=== PATIENT | female | born 1975 | race African-American/Black ===

== ENCOUNTER 2017-09-03 14:23 | Emergency (ER) | payer SELFPAY ==
[2017-09-03 14:27] VITALS: BMI 30.2
[2017-09-03] MEDS ORDERED: NS 1000 ML 1,000 ML ONE ×2 (14:30→16:31)
[2017-09-03] MEDS ORDERED: ZOFRAN INJ 4 MG VIAL ONE (14:30)
[2017-09-03] MEDS ORDERED: ZOFRAN INJ 4 MG VIAL IVP ONE (14:38)
[2017-09-03] MEDS ORDERED: NS 1000 ML 1,000 ML IV ONE ×2 (14:38→16:29)
--- NOTE | 2017-09-03 14:46 | DR.GENAD ---
HPI - PCP Primary Care Physician: ABRAHAM - Complaint/Symptoms Chief Complaint Doctors Comments: Patient awakened this morning not feeling weel , had nausea and vomiting with low grade fever. Chief Complaint:: PT C/O N/V HEADACHE FEVER CHILLS BODY ACHES. PT STATES ALL OF HER SYMPTOMS STARTED THIS AM. - Source History Provided: Patient - Mode of Arrival Mode of Arrival: Ambulatory - Timing Onset of Chief Complaint: 09/03/17 PMH - PMH Past Medical History: Yes Past Medical History: Diabetes Past Surgical History: Yes Surgical History: Cholecystectomy, Hysterectomy - Family History History of Family Medical Conditions: Yes Family Medical History: Diabetes Mellitus - Social History Does any household member use tobacco: No Alcohol Use: None Do you use any recreational Drugs:: No Lives With: Family Lives Where: Home - infectious screening In the last 2 months have you had wt loss of >10#?: NO Have you had fever, night sweats or hemotysis?: No Have you traveled outside the country in the last 6 months?: No Isolation: Standard ROS - Review of Systems Constitutional: Diaphoresis ENTM: No Symptoms Reported Respiratoy: No Symptoms Reported Cardiovascular: No Symptoms Reported Gastrointestinal/Abdominal: No Symptoms Reported Genitourinary: No Symptoms Reported Neurological: No Symptoms Reported Musculoskeletal: No Symptoms Reported Integumentary: No Symptoms Reported Hematologic/Lymphatic: No Symptoms Reported Endocrine: No Symptoms Reported Psychiatric: No Symptoms Reported All Other Systems: Reviewed and Negative PE - Vital Signs Vitals: Temperature 99.3 F Pulse Rate [Left Brachial] 118 Pulse Rate 133 Respiratory Rate 16 Blood Pressure [Right Arm] 116/73 Blood Pressure [Left Arm] 118/76 Blood Pressure 111/76 O2 Sat by Pulse Oximetry 100 - General General Appearance: Alert, In No Apparent Distress - Head Head Exam: Normal Inspection, Atraumatic - Eyes Eye exam: Normal Appearance, PERRL, EOMI - ENT ENT Exam: Normal Exam External Ear Exam: Normal External Inspection TM/Canal Exam: Bilateral Normal Nose Exam: Normal Nose Exam, Sinus Tenderness Mouth Exam: Normal Inspection Throat Exam: Normal Inspection - Neck Neck Exam: Normal Inspection, Full ROM - Chest Chest Inspection: Normal Inspection, Symmetric Chest Wall Rise - Respiratory Respiratory Exam: Normal Lung Sounds Bilat Respiratory Exam: Bilateral Clear to Auscultation - Cardiovascular Cardiovascular Exam: Regular Rate, Normal Rhythm - Abdominal Exam Abdominal Exam: Normal Inspection, Normal Bowel Sounds Abdominal Tenderness: negative: RUQ, RLQ, LUQ, LLQ, Epigastrium, Suprapubic, Diffuse, Mild, Moderate, Severe, Other - Back Back Exam: Normal Inspection, Full ROM - Neurologic Neurological Exam: Alert, Oriented X3, CN II-XII Intact - Psychiatric Psychiatric Exam: Normal Affect, Normal Mood - Skin Skin Exam: Warm, Dry Course - Reevaluation 1st: Improved ROR - Labs Reviewed Laboratory Results Reviewed?: Yes (urine: leuk +,glucose 275) Result Diagrams: 09/03/17 14:30 09/03/17 14:30 Laboratory: WBC 5.9 X10^3/uL (3.6-10.0) 09/03/17 14:30 RBC 4.97 X10^6/uL (3.5-5.4) 09/03/17 14:30 Hgb 14.3 g/dL (12.0-16.0) 09/03/17 14:30 Hct 41.4 % (36.0-47.0) 09/03/17 14:30 MCV 83.4 fL (80.0-100.0) 09/03/17 14:30 MCH 28.8 pg (27.0-34.0) 09/03/17 14:30 MCHC 34.6 g/dL (33.0-35.0) 09/03/17 14:30 RDW 12.7 % (11.6-16.5) 09/03/17 14:30 Plt Count 312 X10^3/uL (150.0-450.0) 09/03/17 14:30 MPV 7.7 fL (7.4-11.0) 09/03/17 14:30 Neut % 50.8 % (42.0-75.0) 09/03/17 14:30 Lymph % 38.4 % (21.0-51.0) 09/03/17 14:30 [place] % 9.6 % (0.0-13.0) 09/03/17 14:30 Eos % 0.4 % (0.9-2.9) L 09/03/17 14:30 Baso % 0.8 % (0.2-1.0) 09/03/17 14:30 Neut # 3.0 x10^3/uL (2.2-4.8) 09/03/17 14:30 Lymph # 2.3 X10^3/uL (1.3-2.9) 09/03/17 14:30 [place] # 0.6 x10^3/uL (0.3-0.8) 09/03/17 14:30 Eos # 0.0 x10^3/uL (0.0-0.2) 09/03/17 14:30 Baso # 0.0 X10^3/uL (0.0-0.1) 09/03/17 14:30 Absolute Nucleated RBC 0.1 /100WBC 09/03/17 14:30 Sodium 135 mmol/L (136-145) L 09/03/17 14:30 Corrected Sodium 140 mmol/L (136-145) 09/03/17 14:30 Potassium 3.5 mmol/L (3.5-5.1) 09/03/17 14:30 Chloride 100 mmol/L (98-107) 09/03/17 14:30 Carbon Dioxide 28.8 mmol/L (21-32) 09/03/17 14:30 BUN 11 mg/dL (7-18) 09/03/17 14:30 Creatinine 0.89 mg/dL (0.55-1.02) 09/03/17 14:30 Est GFR (MDRD) Af Amer > 60 (>60) 09/03/17 14:30 Est GFR (MDRD) Non-Af > 60 (>60) 09/03/17 14:30 Glucose 314 mg/dL (65-99) H 09/03/17 14:30 POC Glucose (mg/dL) 275 mg/dL (65-99) H 09/03/17 18:49 Calcium 9.5 mg/dL (8.5-10.1) 09/03/17 14:30 Specimen Type Clean catch urine 09/03/17 16:09 Urine Color Pale yellow (YELLOW) 09/03/17 16:09 Urine Appearance Cloudy (CLEAR) 09/03/17 16:09 Urine pH 7.0 (5.0 - 8.0) 09/03/17 16:09 Ur Specific [place] 1.005 (1.000-1.030) 09/03/17 16:09 Urine Protein 1+ (NEGATIVE) 09/03/17 16:09 Urine Glucose (UA) 4+ (NEGATIVE) 09/03/17 16:09 Urine Ketones 2+ (NEGATIVE) 09/03/17 16:09 Urine Occult Blood 1+ (NEGATIVE) 09/03/17 16:09 Urine Nitrite Negative (NEGATIVE) 09/03/17 16:09 Urine Bilirubin Negative (NEGATIVE) 09/03/17 16:09 Urine Urobilinogen Normal (NORMAL) 09/03/17 16:09 Ur Leukocyte Esterase 1+ (NEGATIVE) 09/03/17 16:09 Urine RBC 2-4 /HPF (NEGATIVE) 09/03/17 16:09 Urine WBC 3-5 /HPF (NEGATIVE) 09/03/17 16:09 Ur Squamous Epith Cells Few /HPF (NEGATIVE) 09/03/17 16:09 Ur Renal Epithelial Cell Few /HPF (NEGATIVE) 09/03/17 16:09 Urine Bacteria 3+ /HPF (NEGATIVE) 09/03/17 16:09 Ur Culture Indicated? Yes/culture set up 09/03/17 16:09 Streptococcus Screen Negative (NEGATIVE) 09/03/17 14:54 - Diagnosis Discharge Problem: Dehydration, Gastroenteritis UTI (urinary tract infection) Qualifiers: Urinary tract infection type: acute cystitis Hematuria presence: with hematuria Qualified Code(s): N30.01 - Acute cystitis with hematuria - Discharge Plan Condition: Stable - Follow ups/Referrals Follow ups/Referrals: John ROSARIO [Primary Care Provider] - 3 days - Instructions
[2017-09-03] MEDS ORDERED: TORADOL 30 MG VIAL ONE (14:51)
[2017-09-03] MEDS ORDERED: TORADOL 30 MG VIAL IVP ONE (14:57)
[2017-09-03 14:59] LABS: BASOPHILS % (AUTO) 0.8 % (0.2-1.0); EOSINOPHILS % (AUTO) 0.4 % (0.9-2.9); HEMATOCRIT 41.4 % (36.0-47.0); HEMOGLOBIN 14.3 g/dL (12.0-16.0); LYMPHOCYTES # (AUTO) 2.3 X10^3/uL (1.3-2.9); LYMPHOCYTES % (AUTO) 38.4 % (21.0-51.0); MEAN CORPUSCULAR HEMOGLOBIN 28.8 pg (27.0-34.0); MEAN CORPUSCULAR HGB CONC 34.6 g/dL (33.0-35.0); MEAN CORPUSCULAR VOLUME 83.4 fL (80.0-100.0); MEAN PLATELET VOLUME 7.7 fL (7.4-11.0); MONOCYTES # (AUTO) 0.6 x10^3/uL (0.3-0.8); MONOCYTES % (AUTO) 9.6 % (0.0-13.0); NEUTROPHILS % (AUTO) 50.8 % (42.0-75.0); PLATELET COUNT 312 X10^3/uL (150.0-450.0); RED BLOOD COUNT 4.97 X10^6/uL (3.5-5.4); RED CELL DISTRIBUTION WIDTH 12.7 % (11.6-16.5); WHITE BLOOD COUNT 5.9 X10^3/uL (3.6-10.0)
[2017-09-03 15:01] LABS: BLOOD UREA NITROGEN 11 mg/dL (7-18); CALCIUM 9.5 mg/dL (8.5-10.1); CARBON DIOXIDE 28.8 mmol/L (21-32); CHLORIDE 100 mmol/L (98-107); COR NA(FOR HYPERGLY) 140 mmol/L (136-145); CREATININE 0.89 mg/dL (0.55-1.02); SODIUM 135 mmol/L (136-145); eGFR BLACK RACES > 60 (>60); eGFR NON BLACK RACES > 60 (>60)
[2017-09-03 16:32] LABS: BILIRUBIN,URINE NEGATIVE (NEGATIVE); BLOOD/HEMOGLOBIN,URINE 1+ (NEGATIVE); GLUCOSE, URINE 4+ (NEGATIVE); KETONES,URINE 2+ (NEGATIVE); LEUKOCYTE ESTERASE ,URINE 1+ (NEGATIVE); NITRITES,URINE NEGATIVE (NEGATIVE); PROTEIN,URINE 1+ (NEGATIVE); UROBILINOGEN,URINE NORMAL (NORMAL)
[2017-09-03 16:44] LABS: APPEARANCE,URINE CLOUDY (CLEAR); BACTERIA,URINE 3+ /HPF (NEGATIVE); COLOR,URINE PALE YELLOW (YELLOW); RENAL EPITHELIAL CELLS,URINE FEW /HPF (NEGATIVE); SQUAMOUS EPITHELIAL CELL,UR FEW /HPF (NEGATIVE)
[2017-09-03 19:07] VITALS: BP 108/72
--- NOTE | 2017-09-03 22:35 | RAD ---
HISTORY: 42-year-old female with chills and fever, headache and nausea and vomiting. Study: Frontal view of the chest. Comparison: Chest radiograph 10/02/2013 Findings: The trachea is midline. The cardiac silhouette is unremarkable. The lungs are clear without focal c onsolidation, effusion or pneumothorax. Soft tissues are unremarkable. Osseous structures are unrema rkable. IMPRESSION: 1. No acute cardiopulmonary disease. Reported By:
== END 2017-09-03 19:07 | disposition home or self-care (01) ==
LOC: ER 14:35
DX: E86.0 Dehydration (principal); N30.01 Acute cystitis with hematuria; K52.89 Other specified noninfective gastroenteritis and colitis; B96.29 Other Escherichia coli [E. coli] as the cause of diseases classified elsewhere
CPT/HCPCS: 36415; 71010; 80048; 81001; 85025; 87070; 87086; 87088; 87186; 87880; 96365; 96367; 96374; 96375; 99283; A4222; J1885; J2405

== ENCOUNTER 2017-09-05 23:27 | Emergency (ER) | payer SELFPAY ==
[2017-09-05 23:35] VITALS: BP 143/82; BMI 30.2
--- NOTE | 2017-09-06 00:48 | DR.GENAD ---
HPI - PCP Primary Care Physician: megan - Complaint/Symptoms Chief Complaint Doctors Comments: Patient is complaining of right CVA and lower back pain for the past week getting worst today with severe right lower back pain. states she was here three days ago and they told her she had a UTI and gave her Cipro but she is still having pain with fever and chills. States the pain is 8 of 10 and was right lower abdomen radiating to the front initially but now mainly lower back pain. She is having nocturia x3-4 times. She denies hematuria, tobacco or alcohol usage. States she is a diabetic and is taking Lantus 20 units twice daily and her glucose usually run around 120-150 range but when she was here a few days ago her glucose was 300. States they gave her IV fluids and medicines for nausea. She is a patient of Dr. Rosario. Chief Complaint:: back pain - Nurses notes reviewed Nurses Notes Review: Yes - Source History Provided: Patient - Mode of Arrival Mode of Arrival: Ambulatory - Timing Onset of Chief Complaint: 09/01/17 Came on: Gradually - Duration Duration: Constant How lon Duration: Days - Location Location: right lower back pain - Severity Severity: Moderate - Modifying Factors Worsens:: movement and lying flat Improves:: nothing PMH - PMH Past Medical History: Yes Past Medical History: Diabetes Past Surgical History: Yes Surgical History: Cholecystectomy, [employer] Surgery Past Surgical History Comment: partial hysterectomy - Family History History of Family Medical Conditions: Yes Family Medical History: Diabetes Mellitus - Social History Does patient currently use any type of tobacco product: No Have you used tobacco products in the last 12 months: No Type of Tobacco Use: None Does any household member use tobacco: No Alcohol Use: None Do you use any recreational Drugs:: No Lives With: Family Lives Where: Home - infectious screening In the last 2 months have you had wt loss of >10#?: NO Have you had fever, night sweats or hemotysis?: No Have you traveled outside the country in the last 6 months?: No Isolation: Standard ROS - Review of Systems Constitutional: No Symptoms Reported, Chills. negative: See HPI, Diaphoresis, Fever, Malaise, Weakness, Irritable, Fatigue, Loss of Appetite, Other Eyes: No Symptoms Reported. negative: See HPI, Eye Pain, Blurred Vision, Tearing, Discharge, Photophobia, Diplopia, Other ENTM: No Symptoms Reported Respiratoy: No Symptoms Reported. negative: See HPI, Productive Cough, Non- Productive Cough, Moist Cough, Dry Cough, Hacking Cough, Barking Cough, Brassy Cough, Orthopnea, Short of Breath, Stridor, Wheezing, Hemoptysis, Other Cardiovascular: No Symptoms Reported Gastrointestinal/Abdominal: No Symptoms Reported. negative: See HPI, Abdominal Pain, Constipation, Diarrhea, Nausea, Vomiting, Food Intolerance, Other Genitourinary: No Symptoms Reported, Frequency. negative: See HPI, Discharge, Dysuria, Hematuria, Pain, Bleeding, Other Neurological: No Symptoms Reported Musculoskeletal: No Symptoms Reported, Back Pain (right lower back pain) Integumentary: No Symptoms Reported. negative: See HPI, Change in Color, Change in Hair/Nails, Dryness, Lesions, Lumps, Rash, Itching, Wound, Bruises, Juandice, Other Hematologic/Lymphatic: No Symptoms Reported. negative: See HPI, Anemia, Blood Clots, Easy Bleeding, Easy Bruising, Swollen Glands, Lymphadenopathy, Other Endocrine: No Symptoms Reported Psychiatric: No Symptoms Reported. negative: See HPI, Anxiety, Depression, Hallucinations, Excessive crying, Suicidal, Other PE - Vital Signs Vitals: Temperature 98.5 F Pulse Rate 101 Respiratory Rate 18 Blood Pressure [Right Arm] 108/72 Blood Pressure [Left Arm] 118/76 Blood Pressure 143/82 O2 Sat by Pulse Oximetry 100 - General Limitations: No Limitations General Appearance: Alert, In Distress (mild) - Head Head Exam: Normal Inspection, Atraumatic, Normocephalic - Eyes Eye exam: Normal Appearance, PERRL, EOMI. negative: Scleral Icterus, Conjunctival Injection, Nystagmus, Miosis, Mydrasis, Periorbital Swelling, Periorbital Tenderness, Other - ENT ENT Exam: Normal Exam, Normal Oropharynx, Normal External Ear Exam, Mucous Membranes Moist, TM's Normal Bilaterally TM/Canal Exam: Bilateral Normal Nose Exam: Normal Nose Exam Mouth Exam: Normal Inspection Throat Exam: Normal Inspection - Neck Neck Exam: Normal Inspection, Full ROM, Trachea Midline - Chest Chest Inspection: Normal Inspection, Symmetric Chest Wall Rise - Respiratory Respiratory Exam: Normal Lung Sounds Bilat Respiratory Exam: Bilateral Clear to Auscultation - Cardiovascular Cardiovascular Exam: Regular Rate, Normal Rhythm, Normal Heart Sounds - Abdominal Exam Abdominal Exam: Normal Inspection, Normal Bowel Sounds, Soft Abdominal Tenderness: negative: RUQ, RLQ, LUQ, LLQ, Epigastrium, Suprapubic, Diffuse, Mild, Moderate, Severe, Other - Extremities Extremities Exam: Normal Inspection, Full ROM, Normal Capillary Refill. negative: Tenderness, Edema, Joint Swelling, Calf Tenderness, Other - Back Back Exam: Normal Inspection, Full ROM, Tenderness (right lower hypogastric tenderness; no swelling or erythema). negative: (R) CVA Tenderness, (L) CVA Tenderness, Muscle Spasm, Paraspinal Tenderness, Vertebral Tenderness, Rashes, ( R) Sciatic Notch Tenderness, (L) Sciatic Notch Tendern, (R) Straight Leg Raise, (L) Straight Leg Raise, Other - Neurologic Neurological Exam: Alert, Oriented X3, CN II-XII Intact, Normal Gait, Reflexes Normal - Psychiatric Psychiatric Exam: Normal Affect, Normal Mood - Skin Skin Exam: Warm, Dry, Intact, Normal Color ROR - Labs Reviewed Laboratory Results Reviewed?: Yes (all labs and x-ray results reviewed and discussed with patient) Result Diagrams: 09/06/17 01:15 09/06/17 01:15 Laboratory: WBC 4.2 X10^3/uL (3.6-10.0) 09/06/17 01:15 RBC 4.46 X10^6/uL (3.5-5.4) 09/06/17 01:15 Hgb 12.7 g/dL (12.0-16.0) 09/06/17 01:15 Hct 37.1 % (36.0-47.0) 09/06/17 01:15 MCV 83.2 fL (80.0-100.0) 09/06/17 01:15 MCH 28.5 pg (27.0-34.0) 09/06/17 01:15 MCHC 34.3 g/dL (33.0-35.0) 09/06/17 01:15 RDW 13.0 % (11.6-16.5) 09/06/17 01:15 Plt Count 282 X10^3/uL (150.0-450.0) 09/06/17 01:15 MPV 7.5 fL (7.4-11.0) 09/06/17 01:15 Neut % 39.2 % (42.0-75.0) L 09/06/17 01:15 Lymph % 45.6 % (21.0-51.0) 09/06/17 01:15 [place] % 13.3 % (0.0-13.0) H 09/06/17 01:15 Eos % 1.7 % (0.9-2.9) 09/06/17 01:15 Baso % 0.2 % (0.2-1.0) 09/06/17 01:15 Neut # 1.6 x10^3/uL (2.2-4.8) L 09/06/17 01:15 Lymph # 1.9 X10^3/uL (1.3-2.9) 09/06/17 01:15 [place] # 0.6 x10^3/uL (0.3-0.8) 09/06/17 01:15 Eos # 0.1 x10^3/uL (0.0-0.2) 09/06/17 01:15 Baso # 0.0 X10^3/uL (0.0-0.1) 09/06/17 01:15 Absolute Nucleated RBC 0.1 /100WBC 09/06/17 01:15 Sodium 136 mmol/L (136-145) 09/06/17 01:15 Corrected Sodium 140 mmol/L (136-145) 09/06/17 01:15 Potassium 3.8 mmol/L (3.5-5.1) 09/06/17 01:15 Chloride 102 mmol/L (98-107) 09/06/17 01:15 Carbon Dioxide 28.0 mmol/L (21-32) 09/06/17 01:15 BUN 10 mg/dL (7-18) 09/06/17 01:15 Creatinine 0.78 mg/dL (0.55-1.02) 09/06/17 01:15 Est GFR (MDRD) Af Amer > 60 (>60) 09/06/17 01:15 Est GFR (MDRD) Non-Af > 60 (>60) 09/06/17 01:15 Glucose 275 mg/dL (65-99) H 09/06/17 01:15 Calcium 9.0 mg/dL (8.5-10.1) 09/06/17 01:15 Corrected Calcium TNP 09/06/17 01:15 Total Bilirubin 0.50 mg/dL (0.2-1.0) 09/06/17 01:15 AST 17 Units/L (15-37) 09/06/17 01:15 ALT 29 Units/L (12-78) 09/06/17 01:15 Alkaline Phosphatase 57 Units/L (46-116) 09/06/17 01:15 Total Protein 7.4 g/dL (6.4-8.2) 09/06/17 01:15 Albumin 3.4 g/dL (3.4-5.0) 09/06/17 01:15 Globulin 4.0 g/dL (2.5-4.5) 09/06/17 01:15 Albumin/Globulin Ratio 0.9 Ratio (1.1-2.1) L 09/06/17 01:15 Amylase 35 Units/L (25-115) 09/06/17 01:15 Lipase 199 Units/L (73-393) 09/06/17 01:15 Specimen Type Clean catch urine 09/06/17 00:26 Urine Color Yellow (YELLOW) 09/06/17 00:26 Urine Appearance Hazy (CLEAR) 09/06/17 00:26 Urine pH 5.0 (5.0 - 8.0) 09/06/17 00:26 Ur Specific [place] 1.020 (1.000-1.030) 09/06/17 00:26 Urine Protein Negative (NEGATIVE) 09/06/17 00:26 Urine Glucose (UA) 4+ (NEGATIVE) 09/06/17 00:26 Urine Ketones Negative (NEGATIVE) 09/06/17 00: Urine Occult Blood 1+ (NEGATIVE) 09/06/17 00:26 Urine Nitrite Positive (NEGATIVE) 09/06/17 00:26 Urine Bilirubin Negative (NEGATIVE) 09/06/17 00:26 Urine Urobilinogen 1+ (NORMAL) 09/06/17 00:26 Ur Leukocyte Esterase 1+ (NEGATIVE) 09/06/17 00:26 Urine RBC 2-6 /HPF (NEGATIVE) 09/06/17 00:26 Urine WBC 5-10 /HPF (NEGATIVE) 09/06/17 00:26 Ur Squamous Epith Cells Moderate /HPF (NEGATIVE) 09/06/17 00:26 Urine Bacteria 3+ /HPF (NEGATIVE) 09/06/17 00:26 Ur Culture Indicated? Yes/culture set up 09/06/17 00:26 - XRAY XRAY Interpreted by: Radiologist (CT abdomend: No acute abnormality identified. Urinary bladder and rectum are normal.) - Diagnosis Discharge Problem: Urinary tract infection, Diabetes mellitus type 2, Back pain - Discharge Plan Disposition: HOME, SELF-CARE Condition: Stable Prescriptions: Amoxicillin/Potassium Clav [Augmentin 875-125 Tablet] 1 tab PO Q12H #20 tab Ibuprofen [MOTRIN TAB 800 MG *] 800 mg PO BID PRN #40 tab PRN Reason: Pain/Inflammation Phenazopyridine HCl [Pyridium] 200 mg PO BID #12 tablet Sodium Chl 0.9% [Ns 1000 ml] 1,000 ml IV ONCE #1 bag - Follow ups/Referrals Follow ups/Referrals: John ROSARIO [Primary Care Provider] - 3 days - Instructions Instructions: Urinary Tract Infection, Adult, Back Pain, Adult, [id number], Type 2 Diabetes Mellitus, Adult, [id number]-[id number]
[2017-09-06 00:51] LABS: BILIRUBIN,URINE NEGATIVE (NEGATIVE); BLOOD/HEMOGLOBIN,URINE 1+ (NEGATIVE); GLUCOSE, URINE 4+ (NEGATIVE); KETONES,URINE NEGATIVE (NEGATIVE); LEUKOCYTE ESTERASE ,URINE 1+ (NEGATIVE); NITRITES,URINE POSITIVE (NEGATIVE); PROTEIN,URINE NEGATIVE (NEGATIVE); UROBILINOGEN,URINE 1+ (NORMAL)
[2017-09-06] MEDS ORDERED: TORADOL 30 MG VIAL IVP STA (00:54)
[2017-09-06] MEDS ORDERED: TORADOL 30 MG VIAL ONE (00:56)
[2017-09-06 01:12] LABS: APPEARANCE,URINE HAZY (CLEAR); BACTERIA,URINE 3+ /HPF (NEGATIVE); COLOR,URINE YELLOW (YELLOW); SQUAMOUS EPITHELIAL CELL,UR MODERATE /HPF (NEGATIVE)
--- NOTE | 2017-09-06 01:14 | CT ---
CT abdomen and pelvis without contrast Indication: Left-sided back pain for 2 days. Past medical history includes diabetes, cholecystectomy and hysterectomy. Technique: Helical images through the abdomen and pelvis without contrast. Coronal and sagittal refor mats provided. Comparison: None available. Findings: Limited images through the lower chest show no acute abnormality. Review of bone windows sh ows no osseous lesion. Abdomen: Within the limits of the noncontrast study, the liver, spleen, pancreas and adrenal glands a re normal. Kidneys appear normal without hydroureteronephrosis or obstructing stone identified. Vascu lature is free of plaque. Stomach and small bowel are normal. No acute colonic abnormalities seen. Pelvis: The urinary bladder and rectum are normal. Bones is absent. No adnexal region lesions seen. T he appendix is not convincingly demonstrated. No pericecal inflammatory change seen. Impression: 1. No acute abnormality identified. 2. Nonvisualized appendix. No pericecal inflammation seen. Reported By:
[2017-09-06] MEDS ORDERED: ROCEPHIN VIAL 1 GM 1 GM in NS 50 ML IV + SPIKE MINIBAG* 50 ML IV ONE (01:37)
[2017-09-06 01:40] LABS: BASOPHILS % (AUTO) 0.2 % (0.2-1.0); EOSINOPHILS # (AUTO) 0.1 x10^3/uL (0.0-0.2); EOSINOPHILS % (AUTO) 1.7 % (0.9-2.9); HEMATOCRIT 37.1 % (36.0-47.0); HEMOGLOBIN 12.7 g/dL (12.0-16.0); LYMPHOCYTES # (AUTO) 1.9 X10^3/uL (1.3-2.9); LYMPHOCYTES % (AUTO) 45.6 % (21.0-51.0); MEAN CORPUSCULAR HEMOGLOBIN 28.5 pg (27.0-34.0); MEAN CORPUSCULAR HGB CONC 34.3 g/dL (33.0-35.0); MEAN CORPUSCULAR VOLUME 83.2 fL (80.0-100.0); MEAN PLATELET VOLUME 7.5 fL (7.4-11.0); MONOCYTES # (AUTO) 0.6 x10^3/uL (0.3-0.8); MONOCYTES % (AUTO) 13.3 % (0.0-13.0); NEUTROPHILS # (AUTO) 1.6 x10^3/uL (2.2-4.8); NEUTROPHILS % (AUTO) 39.2 % (42.0-75.0); PLATELET COUNT 282 X10^3/uL (150.0-450.0); RED BLOOD COUNT 4.46 X10^6/uL (3.5-5.4); WHITE BLOOD COUNT 4.2 X10^3/uL (3.6-10.0)
[2017-09-06] MEDS ORDERED: LEVAQUIN TAB 500 MG ONE (01:45)
[2017-09-06] MEDS ORDERED: ROCEPHIN VIAL 1 GM ONE (01:46)
[2017-09-06] MEDS ORDERED: NS 50 ML IV + SPIKE MINIBAG* 50 ML IV ONE (01:46)
[2017-09-06] MEDS ORDERED: NS 500 ML IV 500 ML IV ONE (01:46)
[2017-09-06 01:48] LABS: ALANINE AMINOTRANSFERASE 29 Units/L (12-78); ALBUMIN 3.4 g/dL (3.4-5.0); ALKALINE PHOSPHATASE 57 Units/L (46-116); AMYLASE 35 Units/L (25-115); ASPARTATE AMINO TRANSFERASE 17 Units/L (15-37); BLOOD UREA NITROGEN 10 mg/dL (7-18); CHLORIDE 102 mmol/L (98-107); COR NA(FOR HYPERGLY) 140 mmol/L (136-145); CREATININE 0.78 mg/dL (0.55-1.02); LIPASE 199 Units/L (73-393); SODIUM 136 mmol/L (136-145); TOTAL PROTEIN 7.4 g/dL (6.4-8.2); eGFR BLACK RACES > 60 (>60); eGFR NON BLACK RACES > 60 (>60)
[2017-09-06] MEDS ORDERED: LEVAQUIN TAB 500 MG PO SCH (02:00)
== END 2017-09-06 03:00 | disposition home or self-care (01) ==
LOC: ER 23:38
DX: N39.0 Urinary tract infection, site not specified (principal); E11.9 Type 2 diabetes mellitus without complications; M54.5 Low back pain; B96.29 Other Escherichia coli [E. coli] as the cause of diseases classified elsewhere
CPT/HCPCS: 36415; 74176; 80053; 81001; 82150; 83690; 85025; 87086; 87088; 87186; 96365; 96374; 96375; 99283; A4216; A4222; J0696; J1885

== ENCOUNTER 2025-06-30 14:33 | Observation (INO) ==
[2025-06-30] MEDS: ZOFRAN INJ 4 MG VIAL IVP ONE (14:58)
[2025-06-30] MEDS: NovoLIN R (or HumuLIN R) SUBCUT ONE ×2 (15:00→16:47)
[2025-06-30 15:03] LABS: MEAN PLATELET VOLUME 7.7 fL (7.4-11.0); RED CELL DISTRIBUTION WIDTH 14.0 % (11.6-16.5)
--- NOTE | 2025-06-30 15:03 | EKG ---
Test Reason : ams Blood Pressure : */* mmHG Vent. Rate : 92 BPM Atrial Rate : 92 BPM P-R Int : 178 ms QRS Dur : 90 ms QT Int : 362 ms P-R-T Axes : 55 -54 29 degrees QTc Int : 447 ms Normal sinus rhythm Possible Left atrial enlargement RSR' or QR pattern in V1 suggests right ventricular conduction delay Left anterior fascicular block Possible Anterior infarct , age undetermined Abnormal ECG No previous ECGs available Confirmed by Luis A Emmanuel MD ([id number]) on 07/01/2025 4:56:55 AM Referred By: Confirmed By: Luis A Emmanuel MD
[2025-06-30 15:04] LABS: BLOOD/HEMOGLOBIN,URINE NEGATIVE (NEGATIVE); LEUKOCYTE ESTERASE ,URINE 1+ (NEGATIVE); NITRITES,URINE NEGATIVE (NEGATIVE)
[2025-06-30 15:18] LABS: CREATININE 0.87 mg/dL (0.55-1.02); eGFR NON BLACK RACES > 60 (>60)
[2025-06-30 15:21] LABS: COR NA(FOR HYPERGLY) 140 mmol/L (136-145)
[2025-06-30 15:22] LABS: SERUM ACETONE NEGATIVE (NEGATIVE)
[2025-06-30 15:23] LABS: APPEARANCE,URINE CLEAR (CLEAR); SQUAMOUS EPITHELIAL CELL,UR RARE /HPF (NEGATIVE)
[2025-06-30] MEDS: TORADOL 30 MG VIAL IVP ONE (15:33)
[2025-06-30] MEDS: NS 1,000 ML IV 1,000 ML IV ONE ×2 (15:36→16:45)
--- NOTE | 2025-06-30 16:19 | CT ---
EXAMINATION: ABDOMEN/PELVIS W/O CON HISTORY: Elevated Lipase; . COMPARISON: CT abdomen and pelvis 09/06/2017 TECHNIQUE: Unenhanced axial images were obtained through the abdomen and pelvis using renal stone protocol. Reformatted images were obtained as well. Lack of oral and IV contrast limits diagnostic sensitivity The above CT scan was done with automated exposure control and the mA and kV was adjusted to obtain quality images according to patient size. FINDINGS: Lung bases: No acute findings Liver: No acute finding or focal lesion. GB/Biliary: Cholecystectomy. No dilated duct Spleen: Normal size and density Pancreas: Edema at the head of the pancreas may represent early acute pancreatitis. No pseudocyst or dilated duct Adrenal Glands: No mass Kidneys: No obstructing stones, hydronephrosis or solid-appearing lesions. Abdominal aorta: Tapers normally Retroperitoneum: No pathologically enlarged lymph nodes. Bowel: No thickened or dilated loops of bowel, free fluid, free air, pneumatosis or abscess. Moderate stool. Simple diverticula. Appendix not definitely seen. No CT evidence for obstruction, diverticulitis or appendicitis Bladder/: Ureters and bladder unremarkable. Hysterectomy. No pelvic or adnexal mass noted. Osseous: No acute findings or bony lesions IMPRESSION: Edema along the head of the pancreas may represent early pancreatitis. No pseudocyst or dilated duct No CT evidence for obstruction, diverticulitis or appendicitis THIS IS AN ELECTRONICALLY VERIFIED FINAL REPORT 06/30/2025 4:16 PM - Electronically signed by Michel Hoover MD
--- NOTE | 2025-06-30 16:33 | DR.EXTPAIN ---
HPI Time seen Time Seen by Provider: 06/30/25 14:37 HPI Comment HPI Comment: Patient was found unconscious at work in the longterm. Brought in by EMS with high glucose. No signs of injury believed to have lowered herself to the ground when she was not feeling good. Patient does state that she has had a little bit of soreness in her epigastric region over the last few days. Patient did have some nausea. Patient states she is otherwise previously healthy except for diabetes and did not take her Lantus this morning. PMH PMH Past Medical History: Diabetes and Dyslipidemia Past Surgical History: Yes Surgical History: , Cholecystectomy, Hysterectomy and Ortho Surgery Family History Family Medical History: Diabetes Mellitus, Cancer, [place], Coronary Artery Disease, Heart Failure, Sudden Cardiac and Hypertension Social History Do you use any recreational Drugs:: No ROS Review of Systems Constitutional: No Symptoms Reported Eyes: No Symptoms Reported ENTM: No Symptoms Reported Respiratoy: No Symptoms Reported; negative Short of Breath or Wheezing Cardiovascular: No Symptoms Reported; negative Chest Pain, Edema or Palpitations Gastrointestinal/Abdominal: See HPI Genitourinary: No Symptoms Reported Neurological: No Symptoms Reported and See HPI; negative Headache, Numbness, Paresthesia, Seizure, Tingling, Weakness, Dizziness or Speech Problem Musculoskeletal: No Symptoms Reported Integumentary: No Symptoms Reported Hematologic/Lymphatic: No Symptoms Reported Endocrine: See HPI Psychiatric: No Symptoms Reported All Other Systems: Reviewed and Negative PE Vital Signs Vitals: Vital Signs Temperature 98.0 F Pulse Rate 91 Pulse Rate 93 Pulse Rate 93 Pulse Rate 97 Pulse Rate 93 Pulse Rate 94 Pulse Rate 87 Pulse Rate 88 Pulse Rate 88 Pulse Rate 91 Pulse Rate 89 Pulse Rate 93 Respiratory Rate 18 Respiratory Rate 23 Respiratory Rate 21 Respiratory Rate 17 Respiratory Rate 12 Respiratory Rate 18 Respiratory Rate 15 Respiratory Rate 14 Respiratory Rate 19 Respiratory Rate 12 Respiratory Rate 12 Respiratory Rate 12 Blood Pressure 160/92 Blood Pressure 166/88 Blood Pressure 165/93 Blood Pressure 190/102 Blood Pressure 190/102 Blood Pressure 167/91 Blood Pressure 167/91 Blood Pressure 183/97 Blood Pressure 186/93 Blood Pressure 186/93 Blood Pressure 214/115 Blood Pressure 214/115 O2 Sat by Pulse Oximetry 99 O2 Sat by Pulse Oximetry 100 O2 Sat by Pulse Oximetry 100 O2 Sat by Pulse Oximetry 98 O2 Sat by Pulse Oximetry 99 O2 Sat by Pulse Oximetry 100 O2 Sat by Pulse Oximetry 97 O2 Sat by Pulse Oximetry 97 O2 Sat by Pulse Oximetry 97 O2 Sat by Pulse Oximetry 97 O2 Sat by Pulse Oximetry 99 O2 Sat by Pulse Oximetry 100 General Limitations: No Limitations General Appearance: Alert and In No Apparent Distress Head Head Exam: Normal Inspection Eyes Eye exam: Normal Appearance ENT ENT Exam: Normal Exam Neck Neck Exam: Normal Inspection Chest Chest Inspection: Normal Inspection Respiratory Respiratory Exam: Normal Lung Sounds Bilat Cardiovascular Cardiovascular Exam: Regular Rate and Normal Rhythm Abdominal Exam Abdominal Exam: Normal Inspection, Normal Bowel Sounds, Soft and Tenderness (Midepigastric tenderness with deep palpation); negative Distention, Guarding, Rebound, Rigidity, Organomegaly or Ascites Extremities Extremities Exam: Normal Inspection Back Back Exam: Normal Inspection Neurological Neurological Exam: Alert, Oriented X3 and CN II-XII Intact Psychiatric Psychiatric Exam: Normal Affect and Normal Mood Skin Skin Exam: Warm, Dry, Intact and Normal Color COURSE Treatment Treatment: Discussed results of workup with patient and family. Patient has some early pancreatitis and hyperglycemia. Not currently in DKA. Consultation Called: 16:32 Consultation Comments: Discussed case with Dr. Walker and she is agreeable to admission ROR Labs Reviewed Laboratory Results Reviewed?: Yes 06/30/25 14:50 06/30/25 14:50 Laboratory: WBC 6.9 X10^3/uL (3.6-10.0) 06/30/25 14:50 RBC 4.92 X10^6/uL (3.5-5.4) 06/30/25 14:50 Hgb 13.6 g/dL (12.0-16.0) 06/30/25 14:50 Hct 41.1 % (36.0-47.0) 06/30/25 14:50 MCV 83.5 fL (80.0-100.0) 06/30/25 14:50 MCH 27.6 pg (27.0-34.0) 06/30/25 14:50 MCHC 33.0 g/dL (33.0-35.0) 06/30/25 14:50 RDW 14.0 % (11.6-16.5) 06/30/25 14:50 Plt Count 323 X10^3/uL (150.0-450.0) 06/30/25 14:50 MPV 7.7 fL (7.4-11.0) 06/30/25 14:50 Neut % (Auto) 76.5 % (42.0-75.0) H 06/30/25 14:50 Lymph % (Auto) 17.1 % (21.0-51.0) L 06/30/25 14:50 [place] % (Auto) 5.5 % (0.0-13.0) 06/30/25 14:50 Eos % (Auto) 0.6 % (0.9-2.9) L 06/30/25 14:50 Baso % (Auto) 0.3 % (0.2-1.0) 06/30/25 14:50 Neut # (Auto) 5.3 x10^3/uL (2.2-4.8) H 06/30/25 14:50 Lymph # (Auto) 1.2 X10^3/uL (1.3-2.9) L 06/30/25 14:50 [place] # (Auto) 0.4 x10^3/uL (0.3-0.8) 06/30/25 14:50 Eos # (Auto) 0.0 x10^3/uL (0.0-0.2) 06/30/25 14:50 Baso # (Auto) 0.0 X10^3/uL (0.0-0.1) 06/30/25 14:50 Absolute Nucleated RBC 0.0 /100WBC 06/30/25 14:50 Sodium 129 mmol/L (136-145) L 06/30/25 14:50 Corrected Sodium 140 mmol/L (136-145) 06/30/25 14:50 Potassium 3.8 mmol/L (3.5-5.1) 06/30/25 14:50 Chloride 92 mmol/L (98-107) L 06/30/25 14:50 Carbon Dioxide 33.5 mmol/L (21-32) H 06/30/25 14:50 BUN 11 mg/dL (7-18) 06/30/25 14:50 Creatinine 0.87 mg/dL (0.55-1.02) 06/30/25 14:50 Est GFR (MDRD) Af Amer > 60 (>60) 06/30/25 14:50 Est GFR (MDRD) Non-Af > 60 (>60) 06/30/25 14:50 Glucose 558 mg/dL (65-99) H* 06/30/25 14:50 POC Glucose (mg/dL) 501 mg/dL (65-99) H* 06/30/25 15:59 Calcium 9.1 mg/dL (8.5-10.1) 06/30/25 14:50 Corrected Calcium TNP 06/30/25 14:50 Total Bilirubin 0.50 mg/dL (0.2-1.0) 06/30/25 14:50 AST 43 Units/L (15-37) H 06/30/25 14:50 ALT 91 Units/L (12-78) H 06/30/25 14:50 Alkaline Phosphatase 196 Units/L (46-116) H 06/30/25 14:50 Total Protein 8.7 g/dL (6.4-8.2) H 06/30/25 14:50 Albumin 4.0 g/dL (3.4-5.0) 06/30/25 14:50 Globulin 4.7 g/dL (2.5-4.5) H 06/30/25 14:50 Albumin/Globulin Ratio 0.9 Ratio (1.1-2.1) L 06/30/25 14:50 Lipase 134 Units/L (16-77) H 06/30/25 14:50 Specimen Type Clean catch urine 06/30/25 14:44 Urine Color Straw (YELLOW) 06/30/25 14:44 Urine Appearance Clear (CLEAR) 06/30/25 14:44 Urine pH 7.0 (5.0 - 8.0) 06/30/25 14:44 Ur Specific [place] 1.015 (1.000-1.030) 06/30/25 14:44 Urine Protein Negative (NEGATIVE) 06/30/25 14:44 Urine Glucose (UA) 4+ (NEGATIVE) 06/30/25 14:44 Urine Ketones 2+ (NEGATIVE) 06/30/25 14:44 Urine Blood Negative (NEGATIVE) 06/30/25 14:44 Urine Nitrite Negative (NEGATIVE) 06/30/25 14:44 Urine Bilirubin Negative (NEGATIVE) 06/30/25 14:44 Urine Urobilinogen Normal (NORMAL) 06/30/25 14:44 Ur Leukocyte Esterase 1+ (NEGATIVE) 06/30/25 14:44 Urine RBC None seen /HPF (0-3) 06/30/25 14:44 Urine WBC 0-2 /HPF (0-5) 06/30/25 14:44 Ur Squamous Epith Cells Rare /HPF (NEGATIVE) 06/30/25 14:44 Urine Bacteria Trace /HPF (NEGATIVE) 06/30/25 14:44 Urine Trichomonas Few /HPF (NEGATIVE) 06/30/25 14:44 Ur Culture Indicated? No/not indicated 06/30/25 14:44 Urine Opiates Screen Negative (NEG=<300) 06/30/25 14:44 Urine Methadone Screen Negative (NEG=<300) 06/30/25 14:44 Ur Barbiturates Screen Negative (NEG=<200) 06/30/25 14:44 Ur Phencyclidine Scrn Negative (NEG=<25) 06/30/25 14:44 Ur Amphetamines Screen Negative (NEG=<1000) 06/30/25 14:44 U Benzodiazepines Scrn Negative (NEG=<200) 06/30/25 14:44 Urine Cocaine Screen Negative (NEG=<300) 06/30/25 14:44 U Marijuana (THC) Screen Negative (NEG=<50) 06/30/25 14:44 Acetone, Semi-Quant Negative (NEGATIVE) 06/30/25 14:50 Other Results Comments: Name: [employer] [facility]#: [id number] : 1975 Sex: F Location: ER Order Number(s): [id number] Procedure(s):CT ABDOMEN/PELVIS W/O CON Ordering Physician: Toñito Jay Primary Care: NFD,None Service Date: 06/30/25 Service Time: 1532 EXAMINATION: ABDOMEN/PELVIS W/O CON HISTORY: Elevated Lipase; . COMPARISON: CT abdomen and pelvis 09/06/2017 TECHNIQUE: Unenhanced axial images were obtained through the abdomen and pelvis using renal stone protocol. Reformatted images were obtained as well. Lack of oral and IV contrast limits diagnostic sensitivity The above CT scan was done with automated exposure control and the mA and kV was adjusted to obtain quality images according to patient size. FINDINGS: Lung bases: No acute findings Liver: No acute finding or focal lesion. GB/Biliary: Cholecystectomy. No dilated duct Spleen: Normal size and density Pancreas: Edema at the head of the pancreas may represent early acute pancreatitis. No pseudocyst or dilated duct Adrenal Glands: No mass Kidneys: No obstructing stones, hydronephrosis or solid-appearing lesions. Abdominal aorta: Tapers normally Retroperitoneum: No pathologically enlarged lymph nodes. Bowel: No thickened or dilated loops of bowel, free fluid, free air, pneumatosis or abscess. Moderate stool. Simple diverticula. Appendix not definitely seen. No CT evidence for obstruction, diverticulitis or appendicitis Bladder/: Ureters and bladder unremarkable. Hysterectomy. No pelvic or adnexal mass noted. Osseous: No acute findings or bony lesions IMPRESSION: Edema along the head of the pancreas may represent early pancreatitis. No pseudocyst or dilated duct No CT evidence for obstruction, diverticulitis or appendicitis THIS IS AN ELECTRONICALLY VERIFIED FINAL REPORT 06/30/2025 4:16 PM - Electronically signed by Michel Hoover MD EKG Rate: 92 Wallace: Normal Rhythm: NSR Block: None ST: Normal Opioid Opioid Risk Tool Age (Tha box if 16-45): No History of Preadolescent Sexual Abuse: No Total: 0 Total Score Risk Category: Low Risk Copyright: Noel HENSLEY predicting aberrant behaviors Discharge Plan Diagnosis Discharge Problem: Pancreatitis, Acute hyperglycemia Uncontrolled type 2 diabetes mellitus Qualifiers: Glycemic state: with hyperglycemia Qualified Code(s): E11.65 - Type 2 diabetes mellitus with hyperglycemia Discharge Plan Patient Disposition: 09 ADMITTED INPATIENT Condition: Stable Prescriptions: No Action insulin glargine [Lantus U-100 Insulin] 100 unit/mL Solution 60 unit SUBCUT BID gabapentin 400 mg Capsule 400 mg PO QID oxycodone-acetaminophen [Percocet] 10-325 mg Tablet 1 tab PO Q8H PRN Health Concerns: Post Hospitalization: new medications and changes needed to prevent readmission or further decline. Pt educated and given instructions on all concerns. Plan of Treatment: Continue with present treatment and follow up plan. Pt is to keep follow up appointment as instructed and take medications as ordered. Orders to Discharge Patient Discharge Orders: Transfer (Routine); Ordered 06/30/25 Ordered By: Toñito Jay Follow ups/Referrals Follow ups/Referrals: NFD,None [Primary Care Provider] - 3 days Instructions Stand Alone Forms: Find Help Web Site, Post Hospital Follow Up Care Print Language: AUSTRIAN
[2025-06-30] MEDS ORDERED: CONSULT PHARMACY - POTASSIUM & MAGNESIUM XX SCH (17:23)
[2025-06-30] MEDS: TORADOL 30 MG VIAL ONE (17:38)
[2025-06-30] MEDS: NS 1,000 ML IV 1,000 ML IV SCH (17:51)
[2025-06-30] MEDS: MORPHINE SULFATE INJ 2 MG INJ IVP PRN (20:35)
[2025-06-30] MEDS: NovoLIN R (or HumuLIN R) SUBCUT PRN (20:38)
[2025-06-30] MEDS ORDERED: ZOFRAN TAB 4 MG SL PRN (21:52)
[2025-06-30] MEDS: SNACK - Diabetic Appropriate PO SCH (22:29)
[2025-06-30] MEDS: ZOFRAN INJ 4 MG VIAL IVP PRN (22:31)
[2025-07-01 06:20] LABS: MEAN PLATELET VOLUME 7.5 fL (7.4-11.0); RED CELL DISTRIBUTION WIDTH 14.0 % (11.6-16.5)
[2025-07-01 06:34] LABS: COR CA(FOR HYPOALB) 9.0 mg/dL (8.5-10.1); CREATININE 0.59 mg/dL (0.55-1.02); eGFR NON BLACK RACES > 60 (>60)
[2025-07-01] MEDS ORDERED: CONSULT PHARMACY - POTASSIUM & MAGNESIUM XX SCH (07:00)
[2025-07-01] MEDS ORDERED: NS 250 ML IV 250 ML IV ONE (08:48)
[2025-07-01] MEDS: K-RIDER 10 MEQ/100 ML WATER 10 MEQ/100 ML BAG IV SCH (09:02)
[2025-07-01] MEDS: PHENERGAN INJ 25 MG IM PRN (09:02)
--- NOTE | 2025-07-01 09:39 | DR.H&P ---
H&P History & Physical for Day of: H&P Date: 07/01/25 Chief Complaint Chief Complaint: Nausea and abdominal pain History of Present Illness History of Present Illness: Patient is a 50-year-old female with a past medical history of diabetes and hyperlipidemia and chronic pain. She presented after feeling like she passed out at work. She was noted to be hyperglycemic in the ER. She reports having some nausea and abdominal pain. Denies fevers or chills. Denies chest pain or shortness of breath. Labs/imaging: WBC 5.4, hemoglobin 12.5, platelets 309, sodium 142, potassium 3.5, creatinine 0.59, glucose 106, lipase 134, UA negative, UDS negative, acetone negative. CT abdomen and pelvis was obtained that revealed early pancreatitis. Patient was started on IV fluids normal saline at 80 mL/h, will start her on clear liquid diet and advance as tolerated. Order antiemetics. SSI, if able to tolerate diet will be starting Lantus at half the dose that she takes at home. order pain medication prn. Restart other home medications. Otherwise continue with current treatment plan. Continue closely monitor and follow-up labs/imaging. Past Medical History Past Medical History: Diabetes and Dyslipidemia Past Surgical History Surgical History: , Cholecystectomy, Hysterectomy, Tonsillectomy and Other Family History Family Medical History: Diabetes Mellitus, Cancer and [place] Social History Does patient currently use any type of tobacco product: No Type of Tobacco Use: None Does any household member use tobacco: No Alcohol Use: None Drug Use: None Medications Home Medications: Home Medications Medication Instructions Recorded Confirmed Type gabapentin 400 mg capsule 400 mg PO QID 01/27/2406/30 History insulin glargine 100 unit/mL 60 unit subcut BID 06/30/25 History subcutaneous solution (Lantus U-100 Insulin) oxycodone-acetaminophen 10 mg-325 1 tab PO Q8H PRN 06/30/25 History mg tablet (Percocet) Allergies Allergies Allergy/AdvReac Type Severity Reaction Status Date / Time No Known Drug Allergies Allergy Unknown Verified 06/30/25 14:55 Labs 07/01/25 05:54 07/01/25 05:54 Labs: Laboratory WBC 5.4 X10^3/uL (3.6-10.0) 07/01/25 05:54 RBC 4.53 X10^6/uL (3.5-5.4) 07/01/25 05:54 Hgb 12.5 g/dL (12.0-16.0) 07/01/25 05:54 Hct 38.0 % (36.0-47.0) 07/01/25 05:54 MCV 83.9 fL (80.0-100.0) 07/01/25 05:54 MCH 27.7 pg (27.0-34.0) 07/01/25 05:54 MCHC 33.0 g/dL (33.0-35.0) 07/01/25 05:54 RDW 14.0 % (11.6-16.5) 07/01/25 05:54 Plt Count 309 X10^3/uL (150.0-450.0) 07/01/25 05:54 MPV 7.5 fL (7.4-11.0) 07/01/25 05:54 Neut % (Auto) 62.6 % (42.0-75.0) 07/01/25 05:54 Lymph % (Auto) 25.5 % (21.0-51.0) 07/01/25 05:54 [place] % (Auto) 10.7 % (0.0-13.0) 07/01/25 05:54 Eos % (Auto) 0.7 % (0.9-2.9) L 07/01/25 05:54 Baso % (Auto) 0.5 % (0.2-1.0) 07/01/25 05:54 Neut # (Auto) 3.4 x10^3/uL (2.2-4.8) 07/01/25 05:54 Lymph # (Auto) 1.4 X10^3/uL (1.3-2.9) 07/01/25 05:54 [place] # (Auto) 0.6 x10^3/uL (0.3-0.8) 07/01/25 05:54 Eos # (Auto) 0.0 x10^3/uL (0.0-0.2) 07/01/25 05:54 Baso # (Auto) 0.0 X10^3/uL (0.0-0.1) 07/01/25 05:54 Absolute Nucleated RBC 0.1 /100WBC 07/01/25 05:54 Sodium 142 mmol/L (136-145) 07/01/25 05:54 Corrected Sodium TNP 07/01/25 05:54 Potassium 3.5 mmol/L (3.5-5.1) 07/01/25 05:54 Chloride 105 mmol/L (98-107) 07/01/25 05:54 Carbon Dioxide 28.8 mmol/L (21-32) 07/01/25 05:54 BUN 6 mg/dL (7-18) L 07/01/25 05:54 Creatinine 0.59 mg/dL (0.55-1.02) 07/01/25 05:54 Est GFR (MDRD) Af Amer > 60 (>60) 07/01/25 05:54 Est GFR (MDRD) Non-Af > 60 (>60) 07/01/25 05:54 Glucose 106 mg/dL (65-99) H 07/01/25 05:54 POC Glucose (mg/dL) 102 mg/dL (65-99) H 07/01/25 05:36 Hemoglobin A1c > 14.0 % 06/30/25 14:50 Calcium 8.4 mg/dL (8.5-10.1) L 07/01/25 05:54 Corrected Calcium 9.0 mg/dL (8.5-10.1) 07/01/25 05:54 Magnesium 2.1 mg/dL (2.0-2.9) 07/01/25 05:54 Total Bilirubin 0.40 mg/dL (0.2-1.0) 07/01/25 05:54 AST 37 Units/L (15-37) 07/01/25 05:54 ALT 74 Units/L (12-78) 07/01/25 05:54 Alkaline Phosphatase 140 Units/L (46-116) H 07/01/25 05:54 Total Protein 7.2 g/dL (6.4-8.2) 07/01/25 05:54 Albumin 3.2 g/dL (3.4-5.0) L 07/01/25 05:54 Globulin 4.0 g/dL (2.5-4.5) 07/01/25 05:54 Albumin/Globulin Ratio 0.8 Ratio (1.1-2.1) L 07/01/25 05:54 Amylase 63 Units/L (25-115) 06/30/25 14:50 Lipase 134 Units/L (16-77) H 06/30/25 14:50 Specimen Type Clean catch urine 06/30/25 14:44 Urine Color Straw (YELLOW) 06/30/25 14:44 Urine Appearance Clear (CLEAR) 06/30/25 14:44 Urine pH 7.0 (5.0 - 8.0) 06/30/25 14:44 Ur Specific [place] 1.015 (1.000-1.030) 06/30/25 14:44 Urine Protein Negative (NEGATIVE) 06/30/25 14:44 Urine Glucose (UA) 4+ (NEGATIVE) 06/30/25 14:44 Urine Ketones 2+ (NEGATIVE) 06/30/25 14:44 Urine Blood Negative (NEGATIVE) 06/30/25 14:44 Urine Nitrite Negative (NEGATIVE) 06/30/25 14:44 Urine Bilirubin Negative (NEGATIVE) 06/30/25 14:44 Urine Urobilinogen Normal (NORMAL) 06/30/25 14:44 Ur Leukocyte Esterase 1+ (NEGATIVE) 06/30/25 14:44 Urine RBC None seen /HPF (0-3) 06/30/25 14:44 Urine WBC 0-2 /HPF (0-5) 06/30/25 14:44 Ur Squamous Epith Cells Rare /HPF (NEGATIVE) 06/30/25 14:44 Urine Bacteria Trace /HPF (NEGATIVE) 06/30/25 14:44 Urine Trichomonas Few /HPF (NEGATIVE) 06/30/25 14:44 Ur Culture Indicated? No/not indicated 06/30/25 14:44 Urine Opiates Screen Negative (NEG=<300) 06/30/25 14:44 Urine Methadone Screen Negative (NEG=<300) 06/30/25 14:44 Ur Barbiturates Screen Negative (NEG=<200) 06/30/25 14:44 Ur Phencyclidine Scrn Negative (NEG=<25) 06/30/25 14:44 Ur Amphetamines Screen Negative (NEG=<1000) 06/30/25 14:44 U Benzodiazepines Scrn Negative (NEG=<200) 06/30/25 14:44 Urine Cocaine Screen Negative (NEG=<300) 06/30/25 14:44 U Marijuana (THC) Screen Negative (NEG=<50) 06/30/25 14:44 Acetone, Semi-Quant Negative (NEGATIVE) 06/30/25 14:50 Review of Systems Constitutional: Weakness Eyes: No Symptoms Reported ENT: No Symptoms Reported Respiratory: No Symptoms Reported Cardiovascular: No Symptoms Reported Gastrointestinal: Nausea and Abdominal Pain Genitourinary: No Symptoms Reported Musculoskeletal: No Symptoms Reported Skin: No Symptoms Reported Neurological: No Symptoms Reported Physical Exam Vital Signs: Vital Signs Temperature 97.6 F Temperature 97.9 F Pulse Rate [Left Radial] 83 Pulse Rate [Left Radial] 82 Respiratory Rate 20 Respiratory Rate 20 Respiratory Rate 20 Blood Pressure [Right Arm] 162/80 Blood Pressure [Right Arm] 122/70 O2 Sat by Pulse Oximetry 97 O2 Sat by Pulse Oximetry 98 Oriented: Normal Eyes: Normal Ear: Normal Nose: Normal Throat: Normal Respiratory: Clear Throughout Cardiovascular: Normal : Normal Auscultation: Bowel Sounds: Normal Palpation: Normal Tenderness: Epigastric and Mild Skin: Normal Musculoskeletal: Normal Psychiatric: Normal Mood Description: Calm and Appropriate Affect: Normal Speech Pattern: Clear and Appropriate Assessment/Plan (1) Pancreatitis: Qualifiers: Chronicity: acute Pancreatitis type: unspecified pancreatitis type A cute pancreatitis complication: unspecified Qualified Code(s): K85.90 - Acute pancreatitis without necrosis or infection, unspecified Status: Acute Plan: IVF, CLD, pain control. (2) Acute hyperglycemia: Status: Acute (3) Diabetes mellitus type 2: Status: Acute Review H&P Reviewed: Yes Patient was examined?: Yes
[2025-07-01] MEDS: TYLENOL 325 MG TAB PO PRN (13:12)
[2025-07-01 19:04] VITALS: BMI 29.3
[2025-07-01] MEDS: NORCO 5/325 MG TAB PO PRN (20:54)
[2025-07-01] MEDS: LANTUS SC SCH (20:59)
[2025-07-02 04:51] LABS: MEAN PLATELET VOLUME 7.9 fL (7.4-11.0); RED CELL DISTRIBUTION WIDTH 14.4 % (11.6-16.5)
[2025-07-02 05:04] LABS: COR CA(FOR HYPOALB) 9.2 mg/dL (8.5-10.1); COR NA(FOR HYPERGLY) 145 mmol/L (136-145); CREATININE 0.78 mg/dL (0.55-1.02); eGFR NON BLACK RACES > 60 (>60)
--- NOTE | 2025-07-02 12:27 | PCM.PROG ---
Progress Note Progress Note for Day of Date of Exam: 07/02/25 Subjective Subjective: Patient is a 50-year-old female with a past medical history of diabetes and hyperlipidemia and chronic pain admitted for pancreatitis and hyperglycemia. This morning she reports improvement in her symptoms. She has had a bowel movement and was able to tolerate last night solid diet. No acute events overnight. She continues to have some pain in the epigastric area. Labs/imaging: WBC 6.7, hemoglobin 12, platelets 303, sodium 138, potassium 4.1, creatinine 0.78, glucose 379. Continue IV fluids normal saline at 80 mL/h. Diet as tolerated. antiemetics prn. SSI, Increase Lantus to home dose. Pain medication prn. Home medications have been resumed. Otherwise continue with current treatment plan. Continue closely monitor and follow-up labs/imaging. Past Medical Family Social History Allergies: Allergies No Known Drug Allergies Allergy (Unknown, Verified 06/30/25 14:55) Onset Date: 08/06/2019 Review of Systems ROS changes noted: see HPI Vital Signs and I&O's Vital Signs: Vital Signs Temperature 98.3 F Temperature 98.5 F Pulse Rate [Left Radial] 91 Pulse Rate [Left Radial] 89 Respiratory Rate 20 Respiratory Rate 19 Respiratory Rate 19 Respiratory Rate 19 Blood Pressure [Right Arm] 159/85 Blood Pressure [Right Arm] 136/80 O2 Sat by Pulse Oximetry 97 O2 Sat by Pulse Oximetry 97 Intake and Output: Intake & Output 06/29/25 06/30/25 07/01/25 07/02/25 23:59 23:59 23:59 23:59 Intake Total 0 / 0 2472 / 2472 1349 / 1349 Output Total 600 / 600 Balance -600 / -600 [facility] / 2472 1349 / 1349 Physical Exam Oriented: Normal Eyes: Normal Ear: Normal Nose: Normal Throat: Normal Respiratory: Normal Cardiovascular: Normal : Normal Auscultation: Bowel Sounds: Normal Tenderness: Epigastric and Mild Skin: Normal Musculoskeletal: Normal Psychiatric: Normal Mood Description: Calm and Appropriate Affect: Normal Speech Pattern: Clear and Appropriate Laboratory and Diagnostics 07/02/25 04:30 07/02/25 04:30 Labs: Laboratory WBC 6.7 X10^3/uL (3.6-10.0) 07/02/25 04:30 RBC 4.26 X10^6/uL (3.5-5.4) 07/02/25 04:30 Hgb 12.0 g/dL (12.0-16.0) 07/02/25 04:30 Hct 35.9 % (36.0-47.0) L 07/02/25 04:30 MCV 84.3 fL (80.0-100.0) 07/02/25 04:30 MCH 28.1 pg (27.0-34.0) 07/02/25 04: MCHC 33.4 g/dL (33.0-35.0) 07/02/25 04: RDW 14.4 % (11.6-16.5) 07/02/25 04: Plt Count 303 X10^3/uL (150.0-450.0) 07/02/25 04: MPV 7.9 fL (7.4-11.0) 07/02/25 04:30 Neut % (Auto) 63.7 % (42.0-75.0) 07/02/25 04:30 Lymph % (Auto) 25.6 % (21.0-51.0) 07/02/25 04:30 [place] % (Auto) 9.0 % (0.0-13.0) 07/02/25 04:30 Eos % (Auto) 1.1 % (0.9-2.9) 07/02/25 04:30 Baso % (Auto) 0.6 % (0.2-1.0) 07/02/25 04:30 Neut # (Auto) 4.3 x10^3/uL (2.2-4.8) 07/02/25 04:30 Lymph # (Auto) 1.7 X10^3/uL (1.3-2.9) 07/02/25 04:30 [place] # (Auto) 0.6 x10^3/uL (0.3-0.8) 07/02/25 04:30 Eos # (Auto) 0.1 x10^3/uL (0.0-0.2) 07/02/25 04:30 Baso # (Auto) 0.0 X10^3/uL (0.0-0.1) 07/02/25 04:30 Absolute Nucleated RBC 0.0 /100WBC 07/02/25 04:30 Sodium 138 mmol/L (136-145) 07/02/25 04:30 Corrected Sodium 145 mmol/L (136-145) 07/02/25 04:30 Potassium 4.1 mmol/L (3.5-5.1) 07/02/25 04:30 Chloride 106 mmol/L (98-107) 07/02/25 04:30 Carbon Dioxide 29.4 mmol/L (21-32) 07/02/25 04:30 BUN 9 mg/dL (7-18) 07/02/25 04:30 Creatinine 0.78 mg/dL (0.55-1.02) 07/02/25 04:30 Est GFR (MDRD) Af Amer > 60 (>60) 07/02/25 04:30 Est GFR (MDRD) Non-Af > 60 (>60) 07/02/25 04:30 Glucose 379 mg/dL (65-99) H 07/02/25 04:30 POC Glucose (mg/dL) 330 mg/dL (65-99) H 07/02/25 11:39 Hemoglobin A1c > 14.0 % 06/30/25 14:50 Calcium 8.2 mg/dL (8.5-10.1) L 07/02/25 04:30 Corrected Calcium 9.2 mg/dL (8.5-10.1) 07/02/25 04:30 Magnesium 2.1 mg/dL (2.0-2.9) 07/01/25 05:54 Total Bilirubin 0.20 mg/dL (0.2-1.0) 07/02/25 04:30 AST 27 Units/L (15-37) 07/02/25 04:30 ALT 57 Units/L (12-78) 07/02/25 04:30 Alkaline Phosphatase 145 Units/L (46-116) H 07/02/25 04:30 Total Protein 6.4 g/dL (6.4-8.2) 07/02/25 04:30 Albumin 2.7 g/dL (3.4-5.0) L 07/02/25 04:30 Globulin 3.7 g/dL (2.5-4.5) 07/02/25 04:30 Albumin/Globulin Ratio 0.7 Ratio (1.1-2.1) L 07/02/25 04:30 Amylase 63 Units/L (25-115) 06/30/25 14:50 Lipase 134 Units/L (16-77) H 06/30/25 14:50 Specimen Type Clean catch urine 06/30/25 14:44 Urine Color Straw (YELLOW) 06/30/25 14:44 Urine Appearance Clear (CLEAR) 06/30/25 14:44 Urine pH 7.0 (5.0 - 8.0) 06/30/25 14:44 Ur Specific [place] 1.015 (1.000-1.030) 06/30/25 14:44 Urine Protein Negative (NEGATIVE) 06/30/25 14:44 Urine Glucose (UA) 4+ (NEGATIVE) 06/30/25 14:44 Urine Ketones 2+ (NEGATIVE) 06/30/25 14:44 Urine Blood Negative (NEGATIVE) 06/30/25 14:44 Urine Nitrite Negative (NEGATIVE) 06/30/25 14:44 Urine Bilirubin Negative (NEGATIVE) 06/30/25 14:44 Urine Urobilinogen Normal (NORMAL) 06/30/25 14:44 Ur Leukocyte Esterase 1+ (NEGATIVE) 06/30/25 14:44 Urine RBC None seen /HPF (0-3) 06/30/25 14:44 Urine WBC 0-2 /HPF (0-5) 06/30/25 14:44 Ur Squamous Epith Cells Rare /HPF (NEGATIVE) 06/30/25 14:44 Urine Bacteria Trace /HPF (NEGATIVE) 06/30/25 14:44 Urine Trichomonas Few /HPF (NEGATIVE) 06/30/25 14:44 Ur Culture Indicated? No/not indicated 06/30/25 14:44 Urine Opiates Screen Negative (NEG=<300) 06/30/25 14:44 Urine Methadone Screen Negative (NEG=<300) 06/30/25 14:44 Ur Barbiturates Screen Negative (NEG=<200) 06/30/25 14:44 Ur Phencyclidine Scrn Negative (NEG=<25) 06/30/25 14:44 Ur Amphetamines Screen Negative (NEG=<1000) 06/30/25 14:44 U Benzodiazepines Scrn Negative (NEG=<200) 06/30/25 14:44 Urine Cocaine Screen Negative (NEG=<300) 06/30/25 14:44 U Marijuana (THC) Screen Negative (NEG=<50) 06/30/25 14:44 Acetone, Semi-Quant Negative (NEGATIVE) 06/30/25 14:50 Plan (1) Pancreatitis: Status: Acute Qualifiers: Acute pancreatitis complication: unspecified Chronicity: acute P ancreatitis type: unspecified pancreatitis type Qualified Code(s): K85.90 - Acute pancreatitis without necrosis or infection, unspecified Plan: IVF, CLD, pain control. (2) Acute hyperglycemia: Status: Acute (3) Diabetes mellitus type 2: Status: Acute
[2025-07-02] MEDS: LANTUS SC SCH (20:56)
[2025-07-03 05:00] LABS: MEAN PLATELET VOLUME 7.6 fL (7.4-11.0); RED CELL DISTRIBUTION WIDTH 14.3 % (11.6-16.5)
[2025-07-03 05:12] LABS: COR CA(FOR HYPOALB) 9.3 mg/dL (8.5-10.1); CREATININE 0.54 mg/dL (0.55-1.02); eGFR NON BLACK RACES > 60 (>60)
[2025-07-03] MEDS: ULTRAM PO PRN (07:06)
[2025-07-03] MEDS: CATAPRES TAB 0.1 MG PO ONE (07:45)
--- NOTE | 2025-07-03 07:54 | EKG ---
Test Reason : BP 180/106 Blood Pressure : */* mmHG Vent. Rate : 82 BPM Atrial Rate : 82 BPM P-R Int : 164 ms QRS Dur : 84 ms QT Int : 368 ms P-R-T Axes : 51 -51 30 degrees QTc Int : 429 ms Normal sinus rhythm Low voltage QRS Left anterior fascicular block Cannot rule out Anterior infarct (cited on or before 30-JUN-2025) Abnormal ECG When compared with ECG of 30-JUN-2025 14:50, No significant change was found Confirmed by Luis A Emmanuel MD ([id number]) on 07/03/2025 5:20:10 PM Referred By: Confirmed By: Luis A Emmanuel MD
[2025-07-03 08:45] VITALS: PULSE 83
[2025-07-03] MEDS: ZESTRIL TAB 10 MG PO SCH (10:37)
[2025-07-03 13:09] VITALS: BP 151/87; RESP 20; TEMP 98.3; O2SAT 97
== END 2025-07-03 14:20 | disposition home or self-care (01) ==
LOC: ER 14:33 → MED/SURG 14:33
PROVIDERS: ADMIT Internal Medicine; ATTEND Internal Medicine
DX: R10.84 Generalized abdominal pain; E87.1 Hypo-osmolality and hyponatremia; Z79.4 Long term (current) use of insulin; R74.01 Elevation of levels of liver transaminase levels; R41.82 Altered mental status, unspecified; E83.42 Hypomagnesemia; E78.5 Hyperlipidemia, unspecified; R55 Syncope and collapse; R53.1 Weakness; R10.13 Epigastric pain; E11.65 Type 2 diabetes mellitus with hyperglycemia; R94.31 Abnormal electrocardiogram [ECG] [EKG]; K85.80 Other acute pancreatitis without necrosis or infection; G89.29 Other chronic pain